=== PATIENT | male | born 1950 | race Caucasian/White ===

== ENCOUNTER → 2016-07-02 | Outpatient (CLI) | payer MEDICARE, OTHER ==
[~2016-07-02] MED LIST: ALLERGY EYE DRO10 ML OU; ASPIRIN325 MG PO; CELEBREX200 MG PO; DAILY MULTIPLE1 EAC1 PO; DESYREL-DPS50 MG PO; LIPITOR DPS10 MG PO; MIRALAX PACKET17 GM PO; NIACIN50 MG PO; OXY IR DPS5 MG PO; PAROXETINE HCL30 MG PO; PROTONIX40 MG PO; SENOKOT S1 TAB PO; TYLENOL DPS325 MG PO; ULTRAM DPS50 MG PO
== END | disposition home or self-care (01) ==
LOC: PTH.S 10:55
DX: Z01.818 Encounter for other preprocedural examination (principal)

== ENCOUNTER 2016-07-09 05:37 | Inpatient (IN) | payer MEDICARE, OTHER ==
--- NOTE | 2016-07-03 10:22 | NUR ---
Received a SAD person referral when pt was being pre-registered for his total knee surgery on 07/09/16. SWS called and spoke with pt. Pt states he tried to harm himself "years ago." Pt states he is on anti-depressent medications and sees a therapist. Pt denies current thoughts of self harm and denies a plan.
[~2016-07-09] VITALS: Ht 180.3 cm; Wt 77.3 kg
--- NOTE | ~2016-07-09 | HP ---
ADMIT: 07/09/2016 RM/LOC: W.03 [facility] MR#: [id number] [address] [address] CHITRA ZULETA [address] [place] [address] Pre-OP History and Physical SEX: M AGE: 65 : 1950 DATE OF SERVICE: CHIEF COMPLAINT: Knee pain. HISTORY OF PRESENT ILLNESS: The patient is a 65-year-old male, long-standing history of left knee pain. He has had multitude of injections, failed conservative care, now being admitted for left total knee arthroplasty. PAST MEDICAL HISTORY: Includes depression, anxiety, hyperlipidemia. MEDICATIONS: Include: 1. Aspirin. 2. Paxil. 3. Niacin. 4. Trazodone. 5. Multivitamins. 6. Lipitor. ALLERGIES: NONE. SOCIAL HISTORY: Denies any significant tobacco or alcohol use. REVIEW OF SYSTEMS: Negative. PHYSICAL EXAMINATION: Healthy-appearing male, in no acute distress. Walks with antalgic gait on the left lower extremity. Range of motion 5 to 100 degrees. No pain in the hip. He has a varus deformity. Pain around the medial joint line. No open sores or ulcers. Full motor function and normal sensation. IMAGING: X-rays of AP, lateral, and PA flexion view shows advanced left knee arthritis, no joint space medially. IMPRESSION: Advanced left knee degenerative joint disease. PLAN: We talked about different options, failed conservative care. Planning to proceed with left total knee arthroplasty. He is aware of the risks, benefits, and options and agreed to proceed. He has been seen and cleared by Dr. Goetz. Brayan Solis MD/ adam JOB #: [id number] CC: Brayan Solis, Attending Physician Lai Goetz, Family Physician
--- NOTE | ~2016-07-09 | OR ---
ADMIT: 07/09/2016 RM/LOC: 524 [facility] MR#: [id number] [facility]#: [id number] [address] [address] CHITRA ZULETA [address] [place] [address] Operative/Delivery Room Report SEX: M AGE: 65 : 1950 SURGERY DATE: 07/09/2016 SURGEON: Brayan Solis MD ASSISTANTS: Chris Rodriguez PA-C and TK Will PREOPERATIVE DIAGNOSIS: Left knee degenerative joint disease. POSTOPERATIVE DIAGNOSIS: Left knee degenerative joint disease. OPERATIONS: 1. Left total knee arthroplasty. 2. Exparel block. COMPLICATIONS: None. ESTIMATED BLOOD LOSS: 100 mL. TOTAL TOURNIQUET TIME: 41 minutes. COMPONENTS: 7 Attune femoral component, 7 Attune tibial component, 8-mm posterior stabilized insert, 41 mm oval patellar button, and [place] SpeedSet cement. DESCRIPTION OF OPERATION: The patient was taken to the operating room and the correct extremity was identified. The patient received a spinal anesthetic. The left lower extremity was prepped and draped in a standard fashion. The leg was exsanguinated and tourniquet inflated. An anterior incision was made and dissection was carried through the subcutaneous tissue. A medial parapatellar arthrotomy was performed. An appropriate medial release was performed. The patella was subluxed laterally. The infrapatellar fat pad was partially excised for exposure. At that point, the distal femur was opened up with a drill. We cut 10 mm off the distal femur in 5 degrees of valgus using an intramedullary guide. We then cut the tibia perpendicular to its long axis taking it flush with the affected side with an extramedullary guide. We then sized the femur to a size 7 and pinned this in appropriate external rotation aligning it with the epicondylar axis. We then made anterior, posterior, and chamfer cuts with the 4-in-1 cutting block. We opened up the joint space and removed the remaining posterior osteophytes, meniscus, and PCL ligament. We made our box cut centralizing the femoral component. The tibia was subluxed anteriorly, fit for a size 7 modular tibial tray, punched and drilled in appropriate external rotation. We then removed the remaining tibial osteophytes. We then cut the patella perpendicular to its long axis taking it flush with the lateral facet and fit it for a 41 mm oval patellar button restoring patellar height. We then extended the knee and opened the joint space to obtain posterior hemostasis and perform a posterior Exparel block. We then put in trial components with an 8 mm insert. At that point, we had full extension, full flexion, patella tracked centrally and no lateral release was required. The knee was also stable to varus and valgus stress testing. All ADMIT: 07/09/2016 RM/LOC: 524 [facility] MR#: [id number] [address] [place] [id number] CHITRA ZULETA [address] [place] [address] Operative/Delivery Room Report SEX: M AGE: 65 : 1950 trial components were removed and all the bony surfaces were Waterpik'd clean. We then cemented the tibia, femur, and patella in a standard fashion, put in the trial 8-mm insert and held the knee in extension. While the cement hardened, we completed our intra-articular Exparel block. Once the cement was hard, we deflated the tourniquet, obtained hemostasis, irrigated out the wound thoroughly, removed the trial insert and put in the real insert. The knee was again found to be stable with full range of motion. No Hemovac drain was used. At that point, the extensor mechanism was closed with an interrupted 0-Vicryl suture with the knee in flexion. The subcutaneous tissue was closed 2-0 Vicryl and marbin were placed in the skin. Mepilex Border dressing was then applied. The patient was taken to the recovery room in stable condition with no complications. Brayan Solis MD/ adam JOB #: [id number] CC: Brayan Solis, Attending Physician Lai Goetz, Family Physician
[2016-07-11] MEDS ORDERED: LIPITOR DPS10 MG PO (12:59)
[2016-07-11] MEDS ORDERED: PAROXETINE HCL30 MG PO (12:59)
[2016-07-11] MEDS ORDERED: DESYREL-DPS50 MG PO (13:00)
[2016-07-11] MEDS ORDERED: NIACIN50 MG PO (13:00)
[2016-07-11] MEDS ORDERED: ASPIRIN325 MG PO (13:00)
[2016-07-11] MEDS ORDERED: DAILY MULTIPLE1 EAC1 PO (13:01)
[2016-07-11] MEDS ORDERED: CELEBREX200 MG PO (13:01)
[2016-07-11] MEDS ORDERED: ALLERGY EYE DRO10 ML OU (13:01)
[2016-07-11] MEDS ORDERED: MIRALAX PACKET17 GM PO (13:02)
[2016-07-11] MEDS ORDERED: SENOKOT S1 TAB PO (13:02)
[2016-07-11] MEDS ORDERED: TYLENOL DPS325 MG PO (13:02)
[2016-07-11] MEDS ORDERED: PROTONIX40 MG PO (13:02)
[2016-07-11] MEDS ORDERED: ULTRAM DPS50 MG PO (13:02)
[2016-07-11] MEDS ORDERED: OXY IR DPS5 MG PO (13:03)
--- NOTE | 2016-07-16 14:15 | DS ---
ADMIT: 07/09/2016 RM/LOC: 524 [facility] MR#: [id number] [facility]#: [id number] [address] [address] CHITRA ZULETA [address] [place] [address] General Discharge Summary SEX: M AGE: 65 : 1950 ADMISSION DATE: 07/09/2016 DISCHARGE DATE: 07/10/2016 REASON FOR ADMISSION: Elective left total knee arthroplasty after failing conservative care. PREOPERATIVE DIAGNOSIS: Left knee degenerative joint disease. POSTOPERATIVE DIAGNOSIS: Left knee degenerative joint disease. PROCEDURE PERFORMED: Left total knee arthroplasty. SURGEON: Dr. Brayan Solis. ASSISTANTS: 1. Chris Rodriguez PA-C. 2. TK Will. COMPLICATIONS: None. ESTIMATED BLOOD LOSS: 100 mL. ANESTHESIA: Spinal. ACTIVE MEDICAL PROBLEMS: 1. Depression. 2. Anxiety. 3. Hyperlipidemia. HOSPITAL COURSE: The patient was admitted on 07/09/2016 for elective left total knee arthroplasty done successfully without any complications by Dr. Brayan Solis. The patient tolerated the procedure well. Postoperatively, the patient did well with pain control with use of intraoperative Exparel and postoperative oral analgesics. He did suffer from some mild acute blood loss anemia. His hemoglobin dropped to 10.9 on 07/10/2016, but he remained hemodynamically stable and did not require blood transfusion. By postoperative day #1, he was doing well with physical therapy and safe. He was stable and ready for discharge home with plans for outpatient physical therapy. DISCHARGE MEDICATIONS: 1. Paroxetine 45 mg every morning. 2. Atorvastatin 10 mg every morning. 3. Trazodone 25 mg at bedtime. 4. Aspirin 325 mg at bedtime for 30 days, then 81 mg. 5. Niacin 50 mg every morning. 6. Multivitamin every morning. 7. Allergy eye relief 2 to 3 drops twice daily both eyes. 8. Celebrex 200 mg twice daily for 30 days. ADMIT: 07/09/2016 RM/LOC: 524 [facility] MR#: [id number] [address] [address] CHITRA ZULETA [address] [place] [address] General Discharge Summary SEX: M AGE: 65 : 1950 9. Protonix 40 mg at bedtime. 10.Senokot two tablets twice daily for 14 days. 11.Tylenol 650 mg every 6 hours as needed. 12.Ultram 50 mg one to two tablets every 6 hours as needed. 13.MiraLax 17 g everyday. 14.Oxycodone IR 5 mg one to two tablets every 4 hours as needed for breakthrough pain. DISCHARGE INSTRUCTIONS: The patient was discharged home with plans for outpatient physical therapy per total knee arthroplasty protocol. Follow up in the Orthopedic office in 2 weeks for wound check, in six weeks with x-ray. Follow up with primary care as directed. TK Will / Brayan Solis MD / adam JOB #: [id number] CC: Brayan Solis MD, Attending Physician Lai Goetz MD, Family Physician
== END 2016-07-10 14:20 | disposition home or self-care (01) | DRG 470 ==
LOC: WOR 05:37 → 5MS 05:37
PROVIDERS: ADMIT Orthopaedic Surgery
PROC: 0SRD0J9 Replacement of Left Knee Joint with Synthetic Substitute, Cemented, Open Approach (ICD-10-PCS; principal; 2016-07-09)
DX: M17.12 Unilateral primary osteoarthritis, left knee (principal); D62 Acute posthemorrhagic anemia; F32.9 Major depressive disorder, single episode, unspecified; F41.9 Anxiety disorder, unspecified; I44.7 Left bundle-branch block, unspecified; E78.5 Hyperlipidemia, unspecified; Z79.82 Long term (current) use of aspirin